=== PATIENT | female | born 1955 | race Caucasian/White ===

== ENCOUNTER 2022-02-11 18:26 | Inpatient (IN) | payer OTHER ==
[~2022-02-11] VITALS: Ht 162.6 cm; Wt 79.4 kg
[2022-02-11] MEDS ORDERED: ONDANSETRON HCL 4 MG/2 ML VIAL IV ONE ×2 (18:30→21:00)
[2022-02-11] MEDS ORDERED: KETOROLAC TROMETH 30 MG/ML 1ML VIAL IV ONE (18:30)
[2022-02-11 19:43] LABS: Basophils # (auto) 0.2 10 ^3/uL (0-0.2); Basophils % (auto) 3.1 % (0.0-2.0); Eosinophils # (auto) 0.2 10 ^3/uL (0-0.8); Eosinophils % (auto) 2.6 % (0.0-7.0); Hematocrit 30.6 % (36.0-46.0); Lymphocytes # (auto) 2.8 10 ^3/uL (0.4-5.4); Mean Corpuscular Hemoglobin 29.5 pg (28.0-32.0); Mean Corpuscular Hgb Conc. 32.7 g/dL (32.0-36.0); Mean Corpuscular Volume 90.2 fL (80.0-100.0); Monocytes # (auto) 0.4 10 ^3/uL (0-1.3); Monocytes % (auto) 6.2 % (0.0-12.0); Neutrophils # (auto) 3.1 10 ^3/uL (1.6-8.6); Neutrophils % (auto) 46.1 % (37.0-80.0); Red Blood Cells 3.39 10^6/uL (4.0-5.20); Red Cell Distribution Width 17.5 % (11.8-14.3); White Blood Cell 6.8 10^3/uL (4.4-10.8)
[2022-02-11 20:05] LABS: INR 1.03 (0.9-1.15); Partial Thromboplastin Time 30.5 sec (24.6-33.4)
[2022-02-11 20:11] LABS: Albumin 2.9 g/dL (3.4-5.0); Calcium 9.9 mg/dL (8.5-10.1)
[2022-02-11 20:15] LABS: BUN/Creatinine Ratio 22.2; Bilirubin, Total 11.6 mg/dL (0.2-1.0); Total Protein 7.1 g/dL (6.4-8.2)
[2022-02-11] MEDS ORDERED: DOCU-94 PO (20:40)
[2022-02-11] MEDS ORDERED: SODIENE35 RE (20:40)
[2022-02-11] MEDS ORDERED: fentaNYL CITRATE 100 MCG/2 ML VL IV ONE (21:00)
[2022-02-11] MEDS ORDERED: SODIUM CHLORIDE 0.9% 2,000 ML IV ONE (21:00)
[2022-02-11] MEDS ORDERED: ONDANSETRON HCL 4 MG/2 ML VIAL IV PRN (23:15)
[2022-02-11] MEDS ORDERED: SODIUM CHLORIDE 0.9% 1,000 ML IV SCH (23:15)
[2022-02-12] MEDS ORDERED: levoFLOXacin 500MG 100 ML IV SCH (01:00)
[2022-02-12 05:22] VITALS: BP 107/55
[2022-02-12 08:57] VITALS: BP 124/64
[2022-02-12] MEDS: PANTOPRAZOLE 40 MG/10 ML VIAL INJ IV SCH (09:09)
[2022-02-12] MEDS: MORPHINE SULFATE INJ 2 MG/ml SYRG IV PRN ×3 (09:10→22:37)
[2022-02-12 09:22] LABS: Hemoglobin 8.8 g/dL (12.2-16.2); Mean Corpuscular Hemoglobin 29.6 pg (28.0-32.0); Mean Corpuscular Hgb Conc. 32.7 g/dL (32.0-36.0); Mean Corpuscular Volume 90.4 fL (80.0-100.0); Red Blood Cells 2.98 10^6/uL (4.0-5.20); Red Cell Distribution Width 17.4 % (11.8-14.3); White Blood Cell 5.7 10^3/uL (4.4-10.8)
[2022-02-12 09:26] LABS: Basophils % (manual) 0 (0.0-2.0); Blast Cells 0; Metamyelocytes % 0; Myelocytes % 0; Promyelocytes % 0; Reactive Lymphocytes 0
[2022-02-12 09:28] LABS: Calcium 9.3 mg/dL (8.5-10.1); Potassium 5.5 mmol/L (3.5-5.1)
[2022-02-12 09:35] LABS: Albumin 2.6 g/dL (3.4-5.0); BUN/Creatinine Ratio 26.9; Bilirubin, Total 10.8 mg/dL (0.2-1.0); Total Protein 6.1 g/dL (6.4-8.2)
[2022-02-12 10:19] LABS: Band Neutrophils % (manual) 2; Eosinophils % (manual) 3 (0-7); Lymphocytes % (manual) 32 (10.0-50.0); Monocytes % (manual) 4 (0-12)
[2022-02-12] MEDS ORDERED: PIPERACILLIN-TAZOB 3.375GM 100 ML IV SCH (12:00)
[2022-02-12 12:23] VITALS: BP 121/39
[2022-02-12] MEDS ORDERED: SODIUM CHLORIDE 0.9% 1,000 ML IV SCH (15:45)
[2022-02-12 16:17] VITALS: BP 135/61
[2022-02-12] MEDS: SODIUM CHLORIDE 0.9% 1,000 ML IV SCH ×2 (16:44→23:45)
[2022-02-12] MEDS ORDERED: IOHEXOL 300 MG/ML 100ML BOTTLE IJ ONE (16:46)
[2022-02-12] MEDS: metroNIDAZOLE 500MG/100ML 100 ML IV SCH ×2 (16:48→21:39)
[2022-02-12] MEDS: levoFLOXacin 500MG 100 ML IV SCH (18:02)
[2022-02-12 18:59] LABS: Hepatitis A Ab IgM Negative; Hepatitis B Core IgM Negative; Hepatitis C Antibody Negative (Negative)
[2022-02-12 19:30] LABS: Urine Bacteria NONE SEEN /hpf (None Seen); Urine WBC 2 /hpf (0 - 5)
[2022-02-12 19:33] LABS: Urine Blood Trace /uL (Negative)
[2022-02-12 19:57] LABS: Alcohol, Urine < 3.0 mg/dL (0-10); Amphetamine Screen, Urine NEGATIVE (NEGATIVE); Barbiturate Scree,Urine NEGATIVE (NEGATIVE); Benzodiazephine Screen, Urine NEGATIVE (NEGATIVE); Cocaine Screen, Urine NEGATIVE (NEGATIVE); Opiate Scree,Urine NEGATIVE (NEGATIVE)
[2022-02-12 20:00] VITALS: BP 134/61
[2022-02-12 20:32] LABS: Cannabinoid Screen, Urine NEGATIVE (NEGATIVE); Phencyclidine Screen, Urine NEGATIVE (NEGATIVE)
[2022-02-12 22:05] VITALS: BP 134/61
[2022-02-12] MEDS ORDERED: levoFLOXacin 250 MG TAB PO SCH (23:00)
[2022-02-12] MEDS ORDERED: IOHEXOL 350 MG/ML 100ML IJ ONE (23:12)
[2022-02-13] MEDS: MORPHINE SULFATE INJ 2 MG/ml SYRG IV PRN ×3 (05:03→17:17)
[2022-02-13 05:22] VITALS: BP 137/60
[2022-02-13 06:26] LABS: Albumin 2.4 g/dL (3.4-5.0); Calcium 9.4 mg/dL (8.5-10.1); Potassium 5.2 mmol/L (3.5-5.1)
[2022-02-13] MEDS: metroNIDAZOLE 500MG/100ML 100 ML IV SCH ×3 (06:31→21:04)
[2022-02-13 06:38] LABS: Bilirubin, Total 12.4 mg/dL (0.2-1.0)
[2022-02-13 08:00] VITALS: BP 139/68
[2022-02-13] MEDS: SODIUM CHLORIDE 0.9% 1,000 ML IV SCH ×2 (10:49→16:05)
[2022-02-13] MEDS: PANTOPRAZOLE 40 MG/10 ML VIAL INJ IV SCH (11:10)
[2022-02-13] MEDS: levoFLOXacin 500MG 100 ML IV SCH (11:10)
[2022-02-13 12:00] VITALS: BP 166/72
[2022-02-13] MEDS ORDERED: diphenhdrAMINE HCL 50 MG/1 ML VL IV ONE (13:15)
[2022-02-13 16:00] VITALS: BP 154/60
[2022-02-13] MEDS ORDERED: diphenhdrAMINE HCL 50 MG/1 ML VL IV PRN (18:00)
[2022-02-13 20:00] VITALS: BP 141/63
[2022-02-13 22:00] VITALS: BP 141/63
[2022-02-14] MEDS: SODIUM CHLORIDE 0.9% 1,000 ML IV SCH ×4 (00:26→22:25)
[2022-02-14] MEDS: MORPHINE SULFATE INJ 2 MG/ml SYRG IV PRN ×3 (00:47→22:25)
[2022-02-14 05:00] VITALS: BP 142/57
[2022-02-14] MEDS: metroNIDAZOLE 500MG/100ML 100 ML IV SCH ×3 (05:53→22:13)
[2022-02-14 09:00] VITALS: BP 149/69
[2022-02-14] MEDS: levoFLOXacin 500MG 100 ML IV SCH (09:44)
[2022-02-14] MEDS: PANTOPRAZOLE 40 MG/10 ML VIAL INJ IV SCH (10:21)
[2022-02-14 13:00] VITALS: BP 165/57
[2022-02-14 17:00] VITALS: BP 133/70
[2022-02-14 20:00] VITALS: BP 154/49
[2022-02-14 22:00] VITALS: BP 154/49
[2022-02-15 04:00] VITALS: BP 151/64
[2022-02-15] MEDS: metroNIDAZOLE 500MG/100ML 100 ML IV SCH ×3 (05:32→21:17)
[2022-02-15 06:19] LABS: Albumin 2.3 g/dL (3.4-5.0); Calcium 9.5 mg/dL (8.5-10.1); Potassium 4.2 mmol/L (3.5-5.1)
[2022-02-15 06:24] LABS: Bilirubin, Total 12.6 mg/dL (0.2-1.0); Total Protein 6.7 g/dL (6.4-8.2)
[2022-02-15 06:30] LABS: Hematocrit 27.3 % (36.0-46.0); Hemoglobin 9.1 g/dL (12.2-16.2); Mean Corpuscular Hemoglobin 30.5 pg (28.0-32.0); Mean Corpuscular Hgb Conc. 33.2 g/dL (32.0-36.0); Mean Corpuscular Volume 91.8 fL (80.0-100.0); Red Blood Cells 2.97 10^6/uL (4.0-5.20); Red Cell Distribution Width 17.1 % (11.8-14.3); White Blood Cell 6.5 10^3/uL (4.4-10.8)
[2022-02-15 06:34] LABS: Band Neutrophils % (manual) 0; Basophils % (manual) 0 (0.0-2.0); Blast Cells 0; Eosinophils % (manual) 0 (0-7); Metamyelocytes % 0; Myelocytes % 0; Promyelocytes % 0; Reactive Lymphocytes 0
[2022-02-15 07:32] LABS: Lymphocytes % (manual) 19 (10.0-50.0); Monocytes % (manual) 6 (0-12)
[2022-02-15 08:00] VITALS: BP 155/75
[2022-02-15] MEDS: SODIUM CHLORIDE 0.9% 1,000 ML IV SCH (09:49)
[2022-02-15] MEDS: levoFLOXacin 500MG 100 ML IV SCH (09:49)
[2022-02-15] MEDS: MORPHINE SULFATE INJ 2 MG/ml SYRG IV PRN ×2 (09:50→21:04)
[2022-02-15] MEDS: PANTOPRAZOLE 40 MG/10 ML VIAL INJ IV SCH (09:50)
[2022-02-15 12:00] VITALS: BP 137/73
[2022-02-15 16:00] VITALS: BP 154/72
[2022-02-15 20:00] VITALS: BP 154/49
[2022-02-15 22:00] VITALS: BP 117/66
[2022-02-16 05:00] VITALS: BP 165/72
[2022-02-16] MEDS: metroNIDAZOLE 500MG/100ML 100 ML IV SCH ×2 (06:23→13:54)
[2022-02-16 09:00] VITALS: BP 134/69
[2022-02-16] MEDS: levoFLOXacin 500MG 100 ML IV SCH (09:34)
[2022-02-16] MEDS: PANTOPRAZOLE 40 MG/10 ML VIAL INJ IV SCH (09:35)
[2022-02-16 11:50] LABS: Albumin 2.4 g/dL (3.4-5.0); Calcium 9.7 mg/dL (8.5-10.1); Potassium 3.9 mmol/L (3.5-5.1)
[2022-02-16 11:55] LABS: BUN/Creatinine Ratio 8.3; Bilirubin, Total 12.6 mg/dL (0.2-1.0); Total Protein 7.2 g/dL (6.4-8.2)
== END 2022-02-16 14:45 | disposition left against medical advice (07) | DRG 444 ==
LOC: ER 18:30 → OVERFLOW 23:08 → EAST 02-12 03:51
PROVIDERS: ADMIT Nurse Practitioner; ATTEND Internal Medicine
DX: K83.1 Obstruction of bile duct (principal); K85.90 Acute pancreatitis without necrosis or infection, unspecified; D17.71 Benign lipomatous neoplasm of kidney; K59.00 Constipation, unspecified; K21.9 Gastro-esophageal reflux disease without esophagitis; Z53.29 Procedure and treatment not carried out because of patient's decision for other reasons; Z20.822 Contact with and (suspected) exposure to COVID-19; R79.89 Other specified abnormal findings of blood chemistry; G89.29 Other chronic pain; Z83.3 Family history of diabetes mellitus; Z90.49 Acquired absence of other specified parts of digestive tract; N28.1 Cyst of kidney, acquired; Z90.710 Acquired absence of both cervix and uterus; Z88.1 Allergy status to other antibiotic agents; Z88.8 Allergy status to other drugs, medicaments and biological substances
CPT/HCPCS: 36415; 71045; 74176; 74177; 76705; 78226; 80053; 80074; 80307; 81001; 82140; 82248; 83690; 83880; 84484; 85007; 85025; 85027; 85610; 85730; 86301; 87426; 93005; 96361; 96374; 96375; 99291; C9113; G0378; J1885; J1956; J2405; J3490

== ENCOUNTER → 2022-05-15 | Outpatient (CLI) | payer OTHER ==
[~2022-05-15] MED LIST: DOCU-94 PO; SODIENE35 RE
[2022-05-15 13:57] LABS: Basophils # (auto) 0.1 10 ^3/uL (0-0.2); Basophils % (auto) 0.6 % (0.0-2.0); Eosinophils # (auto) 0.2 10 ^3/uL (0-0.8); Eosinophils % (auto) 2.3 % (0.0-7.0); Hematocrit 36.2 % (36.0-46.0); Hemoglobin 11.9 g/dL (12.2-16.2); Lymphocytes # (auto) 2.2 10 ^3/uL (0.4-5.4); Lymphocytes % (auto) 23.2 % (10.0-50.0); Mean Corpuscular Hemoglobin 29.7 pg (28.0-32.0); Mean Corpuscular Hgb Conc. 32.8 g/dL (32.0-36.0); Mean Corpuscular Volume 90.7 fL (80.0-100.0); Monocytes # (auto) 0.4 10 ^3/uL (0-1.3); Monocytes % (auto) 4.3 % (0.0-12.0); Neutrophils # (auto) 6.7 10 ^3/uL (1.6-8.6); Neutrophils % (auto) 69.6 % (37.0-80.0); Red Blood Cells 3.99 10^6/uL (4.0-5.20); Red Cell Distribution Width 16.1 % (11.8-14.3); White Blood Cell 9.7 10^3/uL (4.4-10.8)
[2022-05-15 14:30] LABS: Albumin 3.3 g/dL (3.4-5.0); Calcium 11.2 mg/dL (8.5-10.1); Potassium 4.2 mmol/L (3.5-5.1)
[2022-05-15 14:33] LABS: BUN/Creatinine Ratio 25.7; Bilirubin, Total 3.4 mg/dL (0.2-1.0); Total Protein 9.2 g/dL (6.4-8.2)
[2022-05-16 10:33] LABS: Urine Bacteria NONE SEEN /hpf (None Seen); Urine Blood Negative /uL (Negative); Urine Hyaline Cast FEW /lpf (0 - 2); Urine Specific Gravity 1.019 (1.001-1.035); Urine WBC 4 /hpf (0 - 5)
== END | disposition home or self-care (01) ==
LOC: LAB 13:29
PROVIDERS: ATTEND Student in an Organized Health Care Education/Training Program
DX: E11.9 Type 2 diabetes mellitus without complications (principal); I10 Essential (primary) hypertension
CPT/HCPCS: 36415; 80053; 80061; 81001; 83036; 84443; 85025

== ENCOUNTER → 2022-06-02 | Outpatient (CLI) | payer OTHER | END | disposition home or self-care (01) | LOC: LAB 12:05 | PROVIDERS: ATTEND Internal Medicine Pulmonary Disease | DX: Z01.812 Encounter for preprocedural laboratory examination (principal); Z20.822 Contact with and (suspected) exposure to COVID-19 | CPT/HCPCS: 36415; 87426 ==

== ENCOUNTER → 2022-06-03 | Outpatient (CLI) | payer OTHER | END | disposition home or self-care (01) | LOC: RT 08:09 | PROVIDERS: ATTEND Internal Medicine Pulmonary Disease | DX: Z01.818 Encounter for other preprocedural examination (principal); J44.9 Chronic obstructive pulmonary disease, unspecified; J96.11 Chronic respiratory failure with hypoxia | CPT/HCPCS: 36600; 82805; 94060; 94727; 94729 ==

== ENCOUNTER 2023-08-20 21:02 | Emergency (ER) | payer MEDICARE, OTHER ==
[~2023-08-20] VITALS: Ht 162.6 cm; Wt 68.4 kg
[2023-08-20 21:25] VITALS: BP 141/75; PULSE 92; RESP 16; O2SAT 97
[2023-08-21] MEDS: HYDROcodone-ACET 10/325MG TAB PO ONE (00:21)
[2023-08-21] MEDS ORDERED: HYDR-4798 PO (01:03)
[2023-08-21] MEDS ORDERED: IBUP-1455 PO (01:03)
== END 2023-08-21 01:28 | disposition home or self-care (01) ==
LOC: ER 21:02
DX: S42.212A Unspecified displaced fracture of surgical neck of left humerus, initial encounter for closed fracture (principal); S80.02XA Contusion of left knee, initial encounter; I10 Essential (primary) hypertension; E11.9 Type 2 diabetes mellitus without complications; K21.9 Gastro-esophageal reflux disease without esophagitis; Z85.9 Personal history of malignant neoplasm, unspecified; Z98.890 Other specified postprocedural states; Z90.710 Acquired absence of both cervix and uterus; Z88.8 Allergy status to other drugs, medicaments and biological substances; Z79.899 Other long term (current) drug therapy; W18.09XA Striking against other object with subsequent fall, initial encounter; Y93.89 Activity, other specified; Y92.89 Other specified places as the place of occurrence of the external cause; Y99.8 Other external cause status
CPT/HCPCS: 73060; 73200; 73560

== ENCOUNTER 2023-12-19 19:20 | Inpatient (IN) | payer MEDICARE, OTHER ==
[~2023-12-19] VITALS: Ht 167.6 cm; Wt 66.0 kg
[~2023-12-19 19:20] MED LIST changes: +HYDR-4798 PO; +IBUP-1455 PO
[2023-12-19] MEDS: SODIUM CHLORIDE 0.9% 1,000 ML IV ONE ×2 (19:40→21:26)
[2023-12-19 19:46] VITALS: PULSE 116; RESP 22; O2SAT 92
[2023-12-19 20:03] LABS: Hematocrit 17.3 % (36.0-46.0); Mean Corpuscular Hemoglobin 31.5 pg (28.0-32.0); Mean Corpuscular Hgb Conc. 34.1 g/dL (32.0-36.0); Mean Corpuscular Volume 92.4 fL (80.0-100.0); Platelet Count (auto) 27 10^3/uL (140-450); Red Blood Cells 1.87 10^6/uL (4.0-5.20); Red Cell Distribution Width 12.7 % (11.8-14.3)
[2023-12-19 20:08] LABS: Chloride 101 mmol/L (98-107); Potassium 4.7 mmol/L (3.5-5.1); Sodium 125 mmol/L (136-145)
[2023-12-19 20:09] LABS: Anion Gap 8 (5-15); Carbon Dioxide 16 mmol/L (20-30)
[2023-12-19 20:10] LABS: Calcium 8.3 mg/dL (8.7-10.4)
[2023-12-19 20:13] LABS: Hemoglobin 5.9 g/dL (12.2-16.2); White Blood Cell 0.7 10^3/uL (4.4-10.8)
[2023-12-19 20:14] LABS: Band Neutrophils % (manual) 0; Basophils % (manual) 0 (0.0-2.0); Blast Cells 0; Eosinophils % (manual) 0 (0-7); Metamyelocytes % 0; Myelocytes % 0; Promyelocytes % 0; Reactive Lymphocytes 0
[2023-12-19 20:15] LABS: BUN/Creatinine Ratio 27.7 (10.0-20.0); Blood Urea Nitrogen 38 mg/dL (9-23); Glucose 246 mg/dL (74-106)
[2023-12-19 20:55] LABS: Lymphocytes % (manual) 75 (10.0-50.0); Monocytes % (manual) 15 (0-12)
[2023-12-19 20:56] LABS: Platelet Estimate Markedly Decreased
[2023-12-19 23:39] VITALS: BP 112/54; PULSE 99; RESP 23; TEMP 98.5
[2023-12-20] VITALS (19 sets, daily range): BP systolic 113–148; BP diastolic 53–87; PULSE 72–111; RESP 11–25; TEMP 98.1–101.5; O2SAT 94–100
[2023-12-20] MEDS ORDERED: DEXTROSE (50%) 50ML SYRG IV PRN
[2023-12-20] MEDS ORDERED: ONDANSETRON HCL 4 MG/2 ML VIAL IV PRN
[2023-12-20 01:24] LABS: Urine Bacteria None Seen /hpf (None Seen); Urine WBC None Seen /hpf (0 - 5)
[2023-12-20] MEDS ORDERED: MORPHINE SULFATE INJ 2 MG/ml SYRG IV PRN (01:30)
[2023-12-20] MEDS ORDERED: NITROGLYCERIN 0.4 MG SL TAB SL PRN (01:30)
[2023-12-20 01:32] LABS: Urine Blood Negative /uL (Negative); Urine Clarity Clear (Clear); Urine Color Light-Yellow (Yellow); Urine Protein, UAD Negative (Negative); Urine Specific Gravity 1.008 (1.001-1.035); Urine Urobilinogen Normal (Negative)
[2023-12-20] MEDS: SODIUM CHLORIDE 0.9% 1,000 ML IV SCH (04:00)
[2023-12-20] MEDS: ACCU-CHEK COMFORT CURVE STRIP VI SCH (06:27)
[2023-12-20] MEDS: InsuLIN REG 1unit/0.01ml Soln (100units/ml) SC SCH ×2 (06:29→21:22)
[2023-12-20] MEDS: FAMOTIDINE (10MG/ML) 2ML VL IV SCH (10:00)
[2023-12-20] MEDS: DOCUSATE SOD 100 MG CAP PO PRN (11:49)
[2023-12-20 14:17] LABS: Basophils # (auto) 0 10 ^3/uL (0-0.2); Eosinophils # (auto) 0 10 ^3/uL (0-0.8); Lymphocytes # (auto) 0.7 10 ^3/uL (0.4-5.4); Mean Corpuscular Volume 95.9 fL (80.0-100.0); Monocytes # (auto) 0.4 10 ^3/uL (0-1.3); Neutrophils # (auto) 0.1 10 ^3/uL (1.6-8.6)
[2023-12-20 14:19] LABS: Basophils % (auto) 0.1 % (0.0-2.0); Eosinophils % (auto) 1.8 % (0.0-7.0); Lymphocytes % (auto) 57.1 % (10.0-50.0); Mean Corpuscular Hemoglobin 32.8 pg (28.0-32.0); Mean Corpuscular Hgb Conc. 34.2 g/dL (32.0-36.0); Neutrophils % (auto) 7.4 % (37.0-80.0); Nucleated Red Blood Cells % 1.4 %; Platelet Count (auto) 21 10^3/uL (140-450); Red Blood Cells 3.96 10^6/uL (4.0-5.20); Red Cell Distribution Width 13.5 % (11.8-14.3)
[2023-12-20 14:28] LABS: Monocytes % (auto) 33.6 % (0.0-12.0); White Blood Cell 1.2 10^3/uL (4.4-10.8)
[2023-12-20 14:33] LABS: Alanine Aminotransferase 24 U/L (7-40); Albumin 3.2 g/dL (3.2-4.8); Alkaline Phosphatase 126 U/L (46-116); Anion Gap 7 (5-15); Aspartate Aminotransferase 24 U/L (13-40); BUN/Creatinine Ratio 20.4 (10.0-20.0); Blood Urea Nitrogen 20 mg/dL (9-23); Calcium 8.7 mg/dL (8.7-10.4); Carbon Dioxide 18 mmol/L (20-30); Chloride 106 mmol/L (98-107); Glucose 158 mg/dL (74-106); Total Protein 6.4 g/dL (5.7-8.2)
[2023-12-20 14:35] LABS: Bilirubin, Total 1.9 mg/dL (0.2-1.0)
[2023-12-20 14:38] LABS: Sodium 131 mmol/L (136-145)
[2023-12-20] MEDS ORDERED: TRAM50TA2 PO (16:55)
[2023-12-20] MEDS ORDERED: CHLO25TA2 PO (16:55)
[2023-12-20] MEDS ORDERED: GABA1TAB PO (16:55)
[2023-12-20] MEDS ORDERED: MELA3TAB27 PO (16:55)
[2023-12-20] MEDS ORDERED: LORA10CA12 PO (16:55)
[2023-12-20] MEDS ORDERED: DIPH-753 PO (16:55)
[2023-12-20] MEDS ORDERED: INSLANTI SC (16:55)
[2023-12-20] MEDS ORDERED: POLY335015 PO (16:55)
[2023-12-20] MEDS ORDERED: TIMO10SO OP (16:55)
[2023-12-20] MEDS ORDERED: CHOL20007 PO (16:55)
[2023-12-20] MEDS ORDERED: LATA0.0020 EACHEYE (16:55)
[2023-12-20] MEDS ORDERED: SENN-58 PO (16:55)
[2023-12-20] MEDS ORDERED: OLAN10TA PO (16:55)
[2023-12-20] MEDS ORDERED: BUPR-346 PO (16:55)
[2023-12-20] MEDS ORDERED: TRAZ-228 PO (16:55)
[2023-12-20] MEDS ORDERED: INSU100I52 IJ (16:55)
[2023-12-20] MEDS ORDERED: FERR324T25 PO (16:55)
[2023-12-20] MEDS ORDERED: DULO20CA PO (16:55)
[2023-12-20] MEDS ORDERED: PANT40TA2 PO (16:55)
[2023-12-20] MEDS ORDERED: METF-370 PO (16:55)
[2023-12-20] MEDS ORDERED: LISI20TA56 PO (16:55)
[2023-12-20] MEDS ORDERED: MAGN1CAP2 PO (16:55)
[2023-12-20] MEDS ORDERED: MULT-1018 PO (16:55)
[2023-12-20] MEDS: ACETAMINOPHEN 325 MG TAB PO PRN (18:59)
[2023-12-21] VITALS (8 sets, daily range): BP systolic 127–155; BP diastolic 62–99; PULSE 84–113; RESP 17–20; TEMP 97.7–101.2; O2SAT 94–100
[2023-12-21] MEDS: FILGRASTIM(TBO) 480 MCG/0.8 ML SYRG SC SCH (10:51)
[2023-12-21] MEDS ORDERED: LOPERAMIDE HCL 2 MG CAP/TAB PO PRN (13:30)
[2023-12-21] MEDS: HYDROcodone-ACET 5/325MG TAB PO PRN (17:30)
[2023-12-21 22:57] LABS: COVID19 ANTIGEN SOFIA FIA NEGATIVE (NEGATIVE)
[2023-12-22] VITALS (7 sets, daily range): BP systolic 123–141; BP diastolic 59–84; PULSE 76–94; RESP 16–22; TEMP 97.6–99.2; O2SAT 94–97
[2023-12-22 10:10] LABS: Hemoglobin 12.6 g/dL (12.2-16.2); Platelet Count (auto) 28 10^3/uL (140-450); Red Cell Distribution Width 13.6 % (11.8-14.3)
[2023-12-22 10:11] LABS: Hematocrit 35.5 % (36.0-46.0); Mean Corpuscular Hemoglobin 32.4 pg (28.0-32.0); Mean Corpuscular Hgb Conc. 35.4 g/dL (32.0-36.0); Mean Corpuscular Volume 91.4 fL (80.0-100.0); Red Blood Cells 3.88 10^6/uL (4.0-5.20); White Blood Cell 3.2 10^3/uL (4.4-10.8)
[2023-12-22 10:13] LABS: Basophils % (manual) 0 (0.0-2.0); Blast Cells 0; Metamyelocytes % 0; Promyelocytes % 0
[2023-12-22 10:27] LABS: Alanine Aminotransferase 23 U/L (7-40); Albumin 2.9 g/dL (3.2-4.8); Alkaline Phosphatase 117 U/L (46-116); Anion Gap 7 (5-15); Aspartate Aminotransferase 18 U/L (13-40); BUN/Creatinine Ratio 16.9 (10.0-20.0); Bilirubin, Total 1.5 mg/dL (0.2-1.0); Blood Urea Nitrogen 14 mg/dL (9-23); Calcium 8.5 mg/dL (8.7-10.4); Carbon Dioxide 21 mmol/L (20-30); Chloride 105 mmol/L (98-107); Glucose 243 mg/dL (74-106); Potassium 3.2 mmol/L (3.5-5.1); Sodium 133 mmol/L (136-145); Total Protein 5.7 g/dL (5.7-8.2)
[2023-12-22 10:42] LABS: Band Neutrophils % (manual) 15; Eosinophils % (manual) 3 (0-7); Lymphocytes % (manual) 36 (10.0-50.0); Monocytes % (manual) 11 (0-12); Myelocytes % 1; Platelet Estimate Decreased; Reactive Lymphocytes 2
[2023-12-22] MEDS: POTASSIUM EFFERVESENT TAB 25 MEQ PO ONE (11:47)
[2023-12-23 01:00] VITALS: BP 150/64; PULSE 85; RESP 16; TEMP 98.7; O2SAT 95
[2023-12-23 05:00] VITALS: BP 150/87; PULSE 93; RESP 16; TEMP 98.9; O2SAT 98
[2023-12-23 07:15] LABS: Hematocrit 38.1 % (36.0-46.0); Hemoglobin 13.4 g/dL (12.2-16.2); Mean Corpuscular Hemoglobin 32.7 pg (28.0-32.0); Mean Corpuscular Hgb Conc. 35.1 g/dL (32.0-36.0); Mean Corpuscular Volume 93.1 fL (80.0-100.0); Red Cell Distribution Width 13.8 % (11.8-14.3); White Blood Cell 17.4 10^3/uL (4.4-10.8)
[2023-12-23 07:29] LABS: Alanine Aminotransferase 24 U/L (7-40); Alkaline Phosphatase 142 U/L (46-116); Anion Gap 8 (5-15); BUN/Creatinine Ratio 10.4 (10.0-20.0); Blood Urea Nitrogen 8 mg/dL (9-23); Calcium 9.2 mg/dL (8.7-10.4); Carbon Dioxide 22 mmol/L (20-30); Chloride 107 mmol/L (98-107); Glucose 146 mg/dL (74-106); Potassium 3.9 mmol/L (3.5-5.1); Sodium 137 mmol/L (136-145)
[2023-12-23 07:30] LABS: Aspartate Aminotransferase 27 U/L (13-40); Bilirubin, Total 1.5 mg/dL (0.2-1.0); Total Protein 5.9 g/dL (5.7-8.2)
[2023-12-23 07:36] LABS: Platelet Count (auto) 57 10^3/uL (140-450)
[2023-12-23 07:37] LABS: Basophils % (manual) 0 (0.0-2.0); Eosinophils % (manual) 0 (0-7); Myelocytes % 0; Reactive Lymphocytes 0
[2023-12-23 08:00] VITALS: PULSE 72
[2023-12-23 09:00] VITALS: BP 151/77; PULSE 107; RESP 15; TEMP 98.8; O2SAT 96
[2023-12-23 11:57] LABS: Band Neutrophils % (manual) 8; Blast Cells 2; Lymphocytes % (manual) 13 (10.0-50.0); Metamyelocytes % 3; Monocytes % (manual) 7 (0-12); Platelet Estimate Decreased; Promyelocytes % 1
[2023-12-23 13:00] VITALS: BP 144/72; PULSE 78; RESP 16; TEMP 98.1; O2SAT 94
[2023-12-23 14:15] VITALS: TEMP 36.7
== END 2023-12-23 14:45 | DRG 811 ==
LOC: EDBD 19:20 → ER 19:20 → TELE 12-20 01:29 → TELE-WESTW 12-20 01:29
PROVIDERS: ADMIT Nurse Practitioner Family; ATTEND Internal Medicine
PROC: 30233N1 Transfusion of Nonautologous Red Blood Cells into Peripheral Vein, Percutaneous Approach (ICD-10-PCS; principal; 2023-12-20)
DX: D64.81 Anemia due to antineoplastic chemotherapy (principal); E43 Unspecified severe protein-calorie malnutrition; E87.1 Hypo-osmolality and hyponatremia; C25.9 Malignant neoplasm of pancreas, unspecified; D61.818 Other pancytopenia; D70.9 Neutropenia, unspecified; I10 Essential (primary) hypertension; K21.9 Gastro-esophageal reflux disease without esophagitis; E11.9 Type 2 diabetes mellitus without complications; Z20.822 Contact with and (suspected) exposure to COVID-19; E88.09 Other disorders of plasma-protein metabolism, not elsewhere classified; D69.59 Other secondary thrombocytopenia; Z90.49 Acquired absence of other specified parts of digestive tract; Z90.710 Acquired absence of both cervix and uterus; Z88.6 Allergy status to analgesic agent; Z88.1 Allergy status to other antibiotic agents; Z88.5 Allergy status to narcotic agent; Z82.49 Family history of ischemic heart disease and other diseases of the circulatory system; Z83.3 Family history of diabetes mellitus; Z68.23 Body mass index [BMI] 23.0-23.9, adult
CPT/HCPCS: 36415; 71250; 74176; 80048; 80053; 81001; 82962; 84484; 85007; 85025; 85027; 86850; 86900; 86901; 86920; 87426; 93005; 97110; 97116; 97163; 97530; 99291; G0378; J1447; J1815; J3490